=== PATIENT | female | born 1990 | race Caucasian/White ===

== ENCOUNTER 2016-12-13 07:03 | Day surgery (SDC) | payer OTHER ==
[~2016-12-13] VITALS: Ht 165.1 cm; Wt 60.3 kg
[2016-12-13] MEDS ORDERED: BUPIVACAINE /PF 0.75% 10 ML VIAL INJ ONE (08:31)
[2016-12-13] MEDS ORDERED: LR 1,000 ML IV.SOLN IV ONE (08:31)
[2016-12-13] MEDS ORDERED: NS IRRIG SOLN 1000 ML IR ONE (08:31)
[2016-12-13] MEDS ORDERED: CEFAZOLIN 1 GM IVPB PREMIX 50 ML IV ONE (08:31)
[2016-12-13] MEDS ORDERED: MEPERIDINE HCL/PF 25 MG/ML DISP.SYRIN IVP PRN ×2 (09:30)
[2016-12-13] MEDS ORDERED: ONDANSETRON HCL 4 MG/2 ML VIAL IVP PRN (10:00)
[2016-12-13] MEDS ORDERED: 0.45% NACL 1,000 ML IV SCH (10:00)
[2016-12-13] MEDS ORDERED: TERBUTALINE SULFATE 1 MG/ML VIAL SUBCUT ONE (10:00)
[2016-12-13] MEDS ORDERED: HYDROcodone/ACETAMIN 5-325 MG TAB (NORCO/ VICODIN) PO PRN (10:00)
[2016-12-13] MEDS ORDERED: MORPHINE SULFATE 10 MG/ML VIAL IM PRN (10:00)
[2016-12-13] MEDS ORDERED: TERBUTALINE SULFATE 1 MG/ML VIAL ONE (13:16)
[2016-12-13] MEDS: LR 1,000 ML IV SCH ×2 (14:09→23:20)
[2016-12-13] MEDS: ceFAZolin SODIUM 1 GM in D5W 50 ML IV SCH (21:53)
[2016-12-14 02:34] VITALS: BP_SYST 93
[2016-12-14] MEDS: ceFAZolin SODIUM 1 GM in D5W 50 ML IV SCH (06:07)
== END 2016-12-14 09:00 | disposition home or self-care (01) ==
LOC: SDS 07:03 → SMU 07:07 → SPU 11:30 → SDS 12-14 09:00
PROVIDERS: ATTEND Specialist
DX: O34.32 Maternal care for cervical incompetence, second trimester (principal)
CPT/HCPCS: 59320; 87070 ×2; J0690 ×2; J3105; J3490; J7060; J7120; J2270